=== PATIENT | female | born 1935 | race Caucasian/White ===

== ENCOUNTER 2017-10-15 05:57 | Day surgery (SDC) | payer OTHER, BC ==
[~2017-10-15] VITALS: Ht 154.9 cm; Wt 62.6 kg
[~2017-10-15 05:57] MED LIST: ACIPHEX20 MG PO; ACTICLATE150 MG PO; ADVAIR 250/501 DISK IH; CALCIUM 600 +1 EA12 PO; FINACEA 15% GEL50 GM TP; FISH OIL 1,0001 EAC7 PO; HYZAAR 100-21 TABLET PO; OCUVEL CAPSULE1 EACH PO; OMEPRAZOLE40 M1 PO; SYNTHROID50 MCG PO; SYNTHROID75 MCG PO; ZOCOR40 MG PO
[2017-10-15 07:31] VITALS: BP 182/84
[2017-10-15] MEDS ORDERED: HYDROCODON-ACE1 EAC7 PO (13:50)
[2017-10-15 16:31] VITALS: BP 164/76
[2017-10-15 18:12] VITALS: BP 127/65
[2017-10-15 18:59] VITALS: BP 147/78
== END 2017-10-15 19:12 | disposition home or self-care (01) ==
LOC: NUC 05:57 → SDC 05:57 → NUC 08:30 → SDC 19:12
DX: C50.811 Malignant neoplasm of overlapping sites of right female breast (principal); Z17.0 Estrogen receptor positive status [ER+]; E89.0 Postprocedural hypothyroidism; K21.9 Gastro-esophageal reflux disease without esophagitis; J45.909 Unspecified asthma, uncomplicated; E78.5 Hyperlipidemia, unspecified; I10 Essential (primary) hypertension; M85.80 Other specified disorders of bone density and structure, unspecified site; R73.03 Prediabetes; Z85.850 Personal history of malignant neoplasm of thyroid; Z82.49 Family history of ischemic heart disease and other diseases of the circulatory system; Z82.3 Family history of stroke
CPT/HCPCS: 78195; 88305; 88307; 88341 TC; 88342 TC; 88360; A9541; J0360; J0690; J1170; J2405; J2710; J2765; J7643; S0020

== ENCOUNTER 2017-11-03 06:01 | Day surgery (SDC) | payer OTHER, BC ==
[~2017-11-03] VITALS: Ht 154.9 cm; Wt 62.6 kg
[~2017-11-03 06:01] MED LIST changes: +HYDROCODON-ACE1 EAC7 PO
[2017-11-03 07:03] VITALS: BP 183/82
[2017-11-03 09:40] VITALS: BP 158/69
[2017-11-03 10:35] VITALS: BP 165/72
== END 2017-11-03 11:04 | disposition home or self-care (01) ==
LOC: SDC 06:01
PROC: 0HBT0ZZ Excision of Right Breast, Open Approach (ICD-10-PCS; principal; 2017-11-03)
DX: C50.811 Malignant neoplasm of overlapping sites of right female breast (principal); Z17.0 Estrogen receptor positive status [ER+]; J45.909 Unspecified asthma, uncomplicated; K21.9 Gastro-esophageal reflux disease without esophagitis; E78.5 Hyperlipidemia, unspecified; I10 Essential (primary) hypertension; M85.80 Other specified disorders of bone density and structure, unspecified site; E89.0 Postprocedural hypothyroidism; Z85.850 Personal history of malignant neoplasm of thyroid; Z85.828 Personal history of other malignant neoplasm of skin; H35.30 Unspecified macular degeneration; Z82.49 Family history of ischemic heart disease and other diseases of the circulatory system; Z82.3 Family history of stroke; Z80.8 Family history of malignant neoplasm of other organs or systems
CPT/HCPCS: J0690; J1100; J2405; J3010; Q0175; S0020